=== PATIENT | female | born 1930 | race Caucasian/White ===

== ENCOUNTER 2017-06-10 16:43 | Emergency (ER) | payer MEDICARE, BC ==
[2017-06-10] MEDS ORDERED: 0.9 % SODIUM CHLORIDE 1,000 ML BAG IV ONE (17:13)
--- NOTE | 2017-06-10 17:15 | Emergency Department Record ---
History of Present Illness - General Chief complaint: Weakness Stated complaint: WEAKNESS Time Seen by Provider: 06/10/17 17:08 Source: Patient - History of Present Illness Initial comments: patient has weakness and cough and had large diarrhea stool prior to ED and she feels better pateint presented via ambulance. - Related Data Home Medications Medication Instructions Recorded Confirmed Last Taken Baclofen 10 mg PO 06/10/17 06/10/17 06/10/17 Dronedarone HCl [Multaq] 06/10/17 06/10/17 06/10/17 Hydrocodone/Acetaminophen [[place] 1 each PO 06/10/17 06/10/17 06/10/17 10-325 Tablet] Rivaroxaban [Xarelto] 40 mg PO DAILY 06/10/17 06/10/17 06/10/17 Previous Rx's Medication Instructions Recorded Ciprofloxacin HCl [Cipro] 500 mg PO Q12HR #20 tablet 06/10/17 Allergies Allergy/AdvReac Type Severity Reaction Status Date / Time Penicillins Allergy HIVES Verified 06/10/17 16:49 Sulfa (Sulfonamide Allergy HIVES Verified 06/10/17 16:49 Antibiotics) Review of Systems Reviewed: No additional complaints except as noted below Constitutional: Reports: As per HPI, Weakness. Denies: Chills, Fever, Malaise, Night sweats, Weight change Eyes: Reports: As per HPI. Denies: Eye discharge, Eye pain, Photophobia, Vision change ENT: Reports: As per HPI. Denies: Congestion, Dental pain, Ear pain, Epistaxis , Hearing loss, Throat pain Respiratory: Reports: As per HPI, Cough. Denies: Dyspnea, Hemoptysis, Stridor, Wheezes Cardiovascular: Reports: As per HPI. Denies: Arrhythmia, Chest pain, Dyspnea on exertion, Edema, Murmurs, Orthopnea, Palpitations, Paroxysmal nocturnal dyspnea, Rheumatic Fever, Syncope Endocrine: Reports: As per HPI. Denies: Fatigue, Heat or cold intolerance, Polydipsia, Polyuria Gastrointestinal: Reports: As per HPI. Denies: Abdominal pain, Constipation, Diarrhea, Hematemesis, Hematochezia, Melena, Nausea, Vomiting Genitourinary: Reports: As per HPI. Denies: Abnormal menses, Discharge, Dyspareunia, Dysuria, Frequency, Hematuria, Incontinence, Retention, Urgency Musculoskeletal: Reports: As per HPI. Denies: Arthralgia, Back pain, Gout, Joint swelling, Myalgia, Neck pain Skin: Reports: As per HPI. Denies: Bruising, Change in color, Change in hair/ nails, Lesions, Pruritus, Rash Neurological: Reports: As per HPI. Denies: Abnormal gait, Confusion, Headache, Numbness, Paresthesias, Seizure, Tingling, Tremors, Vertigo, Weakness Psychiatric: Reports: As per HPI. Denies: Anxiety, Auditory hallucinations, Depression, Homicidal thoughts, Suicidal thoughts, Visual hallucinations Hematological/Lymphatic: Reports: As per HPI. Denies: Anemia, Blood Clots, Easy bleeding, Easy bruising, Swollen glands Past Medical History - SOCIAL HISTORY Smoking Status: Never smoker - RESPIRATORY Comment:: O2 at night - CARDIOVASCULAR Hx Hypertension: Yes Comment:: elevated cholesterol - NEURO Hx TIA: Yes (may have) - GI Hx Reflux: Yes (pedro luis) - Hx Renal Disease: Yes (stage 1) - ENDOCRINE Hx Diabetes: Yes - MUSCULOSKELETAL Hx Arthritis: Yes Hx Fibromyalgia: Yes - HEMATOLOGY/ONCOLOGY Hx Anemia: No Hx Bruising: Yes ([place]) Physical Exam - General General Appearance: Alert, Oriented x3, Cooperative, No acute distress - Head Head exam: Normal inspection - Eye Eye exam: Normal appearance, PERRL Pupils: Normal accommodation - ENT ENT exam: Normal exam, Mucous membranes moist, Normal external ear exam, Normal orophraynx, TM's normal bilaterally Ear exam: Normal external inspection. negative: External canal tenderness Nasal Exam: Normal inspection. negative: Discharge, Sinus tenderness Mouth exam: Normal external inspection, Tongue normal Teeth exam: Normal inspection. negative: Dental caries Throat exam: Normal inspection. negative: Tonsillar erythema, Tonsillar exudate - Neck Neck exam: Normal inspection, Full ROM. negative: Tenderness - Respiratory Respiratory exam: Normal lung sounds bilaterally. negative: Respiratory distress - Cardiovascular Cardiovascular Exam: Regular rate, Normal rhythm, Normal heart sounds - GI/Abdominal GI/Abdominal exam: Soft, Normal bowel sounds. negative: Tenderness - Rectal Rectal exam: Deferred - exam: Deferred - Extremities Extremities exam: Normal inspection, Full ROM, Normal capillary refill. negative: Tenderness - Back Back exam: Reports: Normal inspection, Full ROM. Denies: Muscle spasm, Rash noted, Tenderness - Neurological Neurological exam: Alert, Normal gait, Oriented X3, Reflexes normal - Psychiatric Psychiatric exam: Normal affect, Normal mood - Skin Skin exam: Dry, Intact, Normal color, Warm Medical Decision Making - Lab Data Result diagrams: 06/10/17 19:25 06/10/17 19:25 Disposition Clinical Impression: Weakness UTI (urinary tract infection) Qualifiers: Urinary tract infection type: acute cystitis Hematuria presence: without hematuria Qualified Code(s): N30.00 - Acute cystitis without hematuria Disposition: Home, Self-Care Condition: (1) Good Instructions: Urinary Tract Infection in Women (ED) Additional Instructions: fluids and rest Prescriptions: Ciprofloxacin HCl [Cipro] 500 mg PO Q12HR #20 tablet Forms: Patient Portal Access Time of Disposition: 19:47 Quality - Quality Measures Quality Measures: N/A - Blood Pressure Screening Does Patient Have Any of the Following: No Blood Pressure Classification: Hypertensive Reading Systolic Measurement: 142 Diastolic Measurement: 70 Screening for High Blood Pressure: < First Hypertensive BP, F/U Documented > [ [id number]] First Hypertensive Follow-up Interventions: Referral to alternative/primary care provider.
[2017-06-10 18:00] LABS: URINE BILIRUBIN NEGATIVE (NEGATIVE); URINE BLOOD NEGATIVE (NEGATIVE); URINE COLOR YELLOW; URINE GLUCOSE (UA) NEGATIVE (NEGATIVE); URINE KETONE NEGATIVE (NEGATIVE); URINE LEUKOCYTE ESTERASE SMALL (NEGATIVE); URINE NITRITE POSITIVE (NEGATIVE); URINE PROTEIN NEGATIVE (NEGATIVE); URINE UROBILINOGEN 0.2 E.U./dL (0.20 - 1.00)
[2017-06-10 18:10] LABS: URINE APPEARANCE SL CLOUDY
[2017-06-10 18:11] LABS: URINE BACTERIA 3+; URINE EPITHELIAL CELLS 0 - 2 (FEW); URINE RBC 0 - 2 (NONE SEEN); URINE WBC 21 - 35 (0-2/hpf)
[2017-06-10] MEDS ORDERED: CIPROFLOXACIN HCL 500 MG TABLET PO ONE (18:17)
[2017-06-10 19:30] LABS: BASO % 0.6 % (0-6); EOS % 1.6 % (0-6); GRAN % 64.9 % (47-80); HEMATOCRIT 34.4 % (35.0-47.0); LYMPH % 24.7 % (16-45); MEAN CELL VOLUME 92.5 fl (81-97); MEAN PLATELET VOLUME 10.9 fl (7.4-10.4); MONO % 8.2 % (0-9); PLATELET COUNT 371 K/uL (130-400); RED BLOOD COUNT 3.72 M/uL (3.80-5.40); RED CELL DISTRIBUTION WIDTH 13.7 % (11.5-14.5); WHITE BLOOD COUNT W/O DIFF 8.2 K/uL (4.2-12.2)
[2017-06-10 19:32] LABS: MEAN CORPUSCULAR HEMOGLOBIN 29.5 pg (27-33)
[2017-06-10 19:39] LABS: BILIRUBIN,TOTAL 0.2 mg/dL (0.2-1.0); CREATININE 1.3 mg/dL (0.5-0.9); TOTAL PROTEIN 6.8 g/dL (6.6-8.7)
[2017-06-10 19:44] LABS: ALB/GLOB RATIO 0.8 (1.1-1.8); ALBUMIN 3.1 g/dL (4.0-5.0)
--- NOTE | 2017-06-11 08:01 | RADIOLOGY REPORT ---
EXAM: CHEST, TWO VIEWS HISTORY: DIFFICULTY IN BREATHING. TECHNIQUE: Frontal and lateral views of the chest were performed. FINDINGS: The heart size is normal. There is a small sliding type hiatal hernia. No infiltrate or pleural effusion. There is osteopenia. There is a fracture deformity at the thoracolumbar junction. IMPRESSION: 1. SMALL SLIDING TYPE HIATAL HERNIA. 2. THERE IS A FRACTURE DEFORMITY AT THE THORACOLUMBAR JUNCTION. JOB NUMBER: [id number] MTDD
== END 2017-06-10 20:35 | disposition home or self-care (01) ==
LOC: ER 16:43
DX: N30.00 Acute cystitis without hematuria (principal); R53.1 Weakness; R19.7 Diarrhea, unspecified; R06.00 Dyspnea, unspecified; R05 Cough; I13.10 Hypertensive heart and chronic kidney disease without heart failure, with stage 1 through stage 4 chronic kidney disease, or unspecified chronic kidney disease; N18.1 Chronic kidney disease, stage 1
CPT/HCPCS: 71046; 80053; 81001; 83690; 85025; 99283; 99284